=== PATIENT | male | born 1975 | race Two or more races ===

== ENCOUNTER 2017-04-26 17:18 | Emergency (ER) | payer OTHER ==
[~2017-04-26] VITALS: Ht 175.3 cm; Wt 88.9 kg
--- NOTE | 2017-04-26 17:18 | NUR ---
[facility] D/T DISPLACED TRACHEOSTOMY AND FOR POSSIBLE PLACEMENT OR RE-INSERTION
--- NOTE | 2017-04-26 19:03 | NUR ---
CALLED FOR PT PICKUP. ETA 45 MINS.
--- NOTE | 2017-04-26 19:19 | NUR ---
GAVE REPORT TO AKBAR WILKINSON FOR SARAH
--- NOTE | 2017-04-26 19:19 | NUR ---
RECEIVED REPORT FROM JAJA RODRÍGUEZ FOR SARAH.
--- NOTE | 2017-04-26 19:55 | NUR ---
called [facility] to [facility] [id number] [facility] [place], [id number]
[2017-04-26 19:58] VITALS: BP 148/99
--- NOTE | 2017-04-26 19:59 | NUR ---
report given to EMT for transport
== END 2017-04-26 19:59 | disposition home or self-care (01) ==
LOC: ER 17:20
DX: Z93.0 Tracheostomy status (principal); G82.50 Quadriplegia, unspecified; I10 Essential (primary) hypertension
CPT/HCPCS: 99283; A4606; Z7610